=== PATIENT | female | born 1980 | race Caucasian/White ===

== ENCOUNTER 2018-02-22 14:50 | Inpatient (IN) | payer OTHER ==
[~2018-02-22] VITALS: Ht 162.6 cm; Wt 71.2 kg
--- NOTE | 2018-02-22 16:02 | ULTRASOUND REPORT ---
EXAMINATION: US TRIPLEX OF LOWER EXTREMITIES, BILATERAL CLINICAL INFORMATION: Bilateral lower extremity edema. COMPARISON: None TECHNIQUE: Color-flow triplex imaging with spectral analysis and compression Doppler were performed on the lower extremities. FINDINGS: Respiratory variation, normal compression and augmented flow are noted throughout the lower extremities. The visualized common femoral vein, superficial femoral vein, profunda femoral vein, popliteal vein and midcalf peroneal and posterior tibial venous segments show no evidence of deep venous thrombosis. There is no Moreno's cyst. IMPRESSION: No evidence of deep venous thrombosis involving the bilateral lower extremities.
[2018-02-22 16:39] LABS: ABSOLUTE BASOPHIL COUNT 0.1 /CUMM (0.0-0.2); ABSOLUTE EOSINOPHIL COUNT 0.4 /CUMM (0.0-0.7); ABSOLUTE GRANULOCYTE CT 5.8 /CUMM (1.4-6.5); ABSOLUTE LYMPH COUNT 2.4 /CUMM (1.2-3.4); ABSOLUTE MONOCYTE COUNT 0.7 /CUMM (0.10-0.60); BASOPHIL % 1.1 % (0.0-2.0); EOSINOPHIL % 4.7 % (0-5); GRANULOCYTE % 61.6 % (42.2-75.2); HEMATOCRIT 29.1 % (37-47); MEAN CORPUSCULAR HGB 31.2 PG (27.0-31.0); MEAN CORPUSCULAR HGB CONC 33.5 G/DL (33.0-37.0); MEAN CORPUSCULAR VOLUME 92.9 FL (81.0-99.0); MEAN PLATELET VOLUME 7.9 FL (7.4-10.4); PLATELET COUNT 380 /CUMM (130-400); RBC DISTRIBUTION WIDTH 14.6 % (11.5-14.5); RED BLOOD CELL CT 3.13 /CUMM (4.20-5.40); WHITE BLOOD CELL COUNT 9.5 /CUMM (4.8-10.8)
--- NOTE | 2018-02-22 17:38 | RADIOLOGY REPORT ---
EXAMINATION: CHEST 2 VIEWS CLINICAL INFORMATION: Chest tightness. COMPARISON: None. TECHNIQUE: PA and lateral views of the chest were obtained. FINDINGS: The cardiac silhouette is not enlarged. The mediastinal and hilar contours are unremarkable. There are neither pleural effusions nor pneumothoraces. There are no consolidations. The osseous structures are unremarkable. IMPRESSION: No evidence for acute disease.
--- NOTE | 2018-02-22 17:43 | ED GENERAL ADULT ---
History of Present Illness General Chief Complaint: General Adult Stated Complaint: TINGLING IN HANDS/FEET VAGINAL X 1 WEEK AGO Source: patient Exam Limitations: no limitations Vital Signs & Intake/Output Vital Signs & Intake/Output Vital Signs Date Time Temp Pulse Resp B/P B/P Pulse O2 O2 Flow FiO2 Mean Ox Delivery Rate 02/22 2042 98.4 84 18 164/88 100 Room Air 02/22 1838 76 18 170/92 98 Room Air 02/22 1757 74 18 172/99 99 Room Air 02/22 1730 Room Air 02/22 1510 98.9 89 16 156/91 98 Room Air Allergies Coded Allergies: No Known Allergies (02/22/18) Reconcile Medications Cholecalciferol (Vitamin D3) (Vitamin D) 5,000 UNIT TABLET 1 TAB PO DAILY SUPPLEMENT (Reported) Levothyroxine Sodium 112 MCG TABLET 1 TAB PO DAILY THYROID (Reported) Vit No.130/Iron/FA ( Tablet) 27 MG IRON-800 MCG TABLET 1 TAB PO DAILY SUPPLEMENT (Reported) Triage Note: PT TO ED WITH C/O RESIDUAL BILATERAL UPPER AND LOWER MILD SWELLING S/P VAGINAL DELIVERY ONE WEEK AGO. ALSO REPORTS SOME NUMBNESS AND TINGLING TO BILATERAL HANDS. REPORTS INTERMITTENT CHEST TIGHTNESS. Triage Nurses Notes Reviewed? yes Onset: Gradual Duration: hour(s): Timing: recent history : No Patient currently breastfeeds: Yes HPI: 37 year old female presents to the Emergency Department for tingling in bilateral hands and swollen bilateral lower extremities. She also complains of a headache. She is 1 week post .The infant was 4 weeks early. She says she has bilateral hand paresthesias, swelling in her hands and feet, headache. She delivered at [facility] by the erecting crane operator. She is a 1 para 1. Past History Travel History Traveled to [place] past 21 day No Medical History Any Pertinent Medical History? 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 No Review of Systems Review of Systems Constitutional: Reports: see HPI. Denies: fever. EENTM: Reports: no symptoms. Denies: blurred vision, double vision, visual changes. Respiratory: Reports: no symptoms. Denies: short of breath. Cardiovascular: Reports: see HPI, edema (bilateral LE). Denies: chest pain. GI: Reports: no symptoms. Genitourinary: Reports: no symptoms. Musculoskeletal: Reports: no symptoms. Skin: Reports: no symptoms. Neurological/Psychological: Reports: see HPI, tingling (bilateral hands). Hematologic/Endocrine: Reports: no symptoms. Immunologic/Allergic: Reports: no symptoms. All Other Systems: Reviewed and Negative Physical Exam Physical Exam General Appearance: well developed/nourished, alert, awake, anxious, mild distress Head: atraumatic, normal appearance Eyes: Bilateral: normal appearance, PERRL, EOMI. Ears, Nose, Throat: normal ENT inspection Neck: normal inspection Respiratory: lungs clear Cardiovascular: regular rate/rhythm Peripheral Pulses: 4+ radial (R), 4+ radial (L) Gastrointestinal: soft Back: normal inspection Extremities: bilateral LE edema Neurologic/Psych: no motor/sensory deficits, awake, alert, oriented x 3 Skin: intact, normal color, warm/dry Core Measures ACS in differential dx? No CVA/TIA Diagnosis: No Sepsis Present: No Sepsis Focused Exam Completed? No Progress Differential Diagnoses I considered the following diagnoses in my evaluation of the patient: Plan of Care: Orders Procedure Date/time Status Heart Healthy Diet 02/23 B Active CBC WITHOUT DIFFERENTIAL 02/23 0600 Active Regular Diet 02/22 D Complete MAGNESIUM 02/22 2300 Active Patient Data 02/22 2009 Active CULTURE,URINE 02/22 1949 Active TRNSFRASE ASPART AMINO 02/22 1949 Complete TRNSFRAS ALANINE AMINO 02/22 1949 Complete ED Holding Orders 02/22 1824 Active Admit to inpatient 02/22 1824 Active Vital Signs 02/22 1824 Active Code Status 02/22 1824 Active Intake & Output 02/22 1757 Active URINALYSIS 02/22 1512 Complete COMPREHENSIVE METABOLIC PANEL 02/22 1512 Complete CBC WITHOUT DIFFERENTIAL 02/22 1512 Complete EKG 02/22 1512 Active Admit to inpatient 02/22 UNK Active VTE Mechanical Prophylaxis 02/22 UNK Active Vital Signs 02/22 UNK Active Rubio, Insertion/Removal/Asses 02/22 UNK Active Activity/Ambulation 02/22 UNK Active Current Medications Sig/Davonte Start time Last Medication Dose Stop Time Status Admin Levothyroxine Sodium 0.112 MG DAILY AC 02/23 0700 UNVr (Synthroid) Labetalol HCl 200 MG BID 02/22 2100 UNVr (Trandate-Normodyne 200MG Tab) Ondansetron HCl 4 MG Q6P PRN 02/22 2015 UNVr (Zofran) Dextrose/Lactated 1,000 ML Q13H 02/22 1945 UNVr Ringer's (D5W in Lactated Ringers) Magnesium Sulfate 6 GM ONE ONE 02/22 1945 CAN (Mag Sulfate Bolus 02/22 2059 40MG/Ml) Sterile Water 100 ML (WATER) Magnesium Sulfate 40 GM Q20H 02/22 1945 UNVr (Mag Sulfate Infusion 40MG/ML) Sterile Water 1,000 ML (WATER) Laboratory Tests 02/22/182024: AST 52 H, ALT 105 H 02/22/18 1625: Urine Color STRAW, Urine Clarity CLEAR, Urine pH 6.5, Ur Specific [place] 1.010, Urine Protein NEG, Urine Ketones NEG, Urine Nitrite NEG, Urine Bilirubin NEG, Urine Urobilinogen 0.2, Ur Leukocyte Esterase LARGE H, Ur Microscopic SEDIMENT EXAMINED, Urine RBC 25-50 H, Urine WBC 5-10 H, Ur Epithelial Cells FEW, Urine Bacteria FEW H, Urine Hemoglobin LARGE H, Urine Glucose NEG 02/22/18 1610: Anion Gap 5, Estimated GFR > 60, BUN/Creatinine Ratio 18.3, Glucose 96, Calcium 9.5, Total Bilirubin 0.3, AST 50 H, ALT 99 H, Alkaline Phosphatase 78, Total Protein 6.3, Albumin 3.4 L, Globulin 2.9, Albumin/Globulin Ratio 1.2, CBC w Diff NO MAN DIFF REQ, RBC 3.13 L, MCV 92.9, MCH 31.2 H, MCHC 33.5, RDW 14.6 H , MPV 7.9, Gran % 61.6, Lymphocytes % 25.1, Monocytes % 7.5, Eosinophils % 4.7, Basophils % 1.1, Absolute Granulocytes 5.8, Absolute Lymphocytes 2.4, Absolute Monocytes 0.7 H, Absolute Eosinophils 0.4, Absolute Basophils 0.1 Microbiology 02/22 1949 URINE ROUT: Urine Culture - ORD Initial ED EKG: NSR Comments: X-Ray PATIENT: IRVIN WILBURN PRESENT AGE: 37 PATIENT ACCOUNT NO: [id number] : 81 LOCATION: [facility] ORDERING PHYSICIAN: Yrn ALVARADO SERVICE DATE: 02/22/18 EXAM TYPE: RAD - XRY-CHEST XRAY, TWO VIEWS EXAMINATION: CHEST 2 VIEWS CLINICAL INFORMATION: Chest tightness. COMPARISON: None. TECHNIQUE: PA and lateral views of the chest were obtained. FINDINGS: The cardiac silhouette is not enlarged. The mediastinal and hilar contours are unremarkable. There are neither pleural effusions nor pneumothoraces. There are no consolidations. The osseous structures are unremarkable. IMPRESSION: No evidence for acute disease. DICTATED BY: Nick Tobin MD DATE/TIME DICTATED:02/22/181731 BIOANALYST:AYO DATE/TIME TRANSCRIBED:02/22/181731 CONFIDENTIAL, DO NOT COPY WITHOUT APPROPRIATE AUTHORIZATION. <Electronically signed in Other Vendor System> SIGNED BY: Nick Tobin MD 02/22/181737 PATIENT: IRVIN WILBURN PRESENT AGE: 37 PATIENT ACCOUNT NO: [id number] : 81 LOCATION: [facility] ORDERING PHYSICIAN: Yrn ALVARADO SERVICE DATE: 02/22/18 EXAM TYPE: US - US-EXT BILAT VENOUS DOPPLER EXAMINATION: US TRIPLEX OF LOWER EXTREMITIES, BILATERAL CLINICAL INFORMATION: Bilateral lower extremity edema. COMPARISON: None TECHNIQUE: Color-flow triplex imaging with spectral analysis and compression Doppler were performed on the lower extremities. FINDINGS: Respiratory variation, normal compression and augmented flow are noted throughout the lower extremities. The visualized common femoral vein, superficial femoral vein, profunda femoral vein, popliteal vein and midcalf peroneal and posterior tibial venous segments show no evidence of deep venous thrombosis. There is no Moreno's cyst. IMPRESSION: No evidence of deep venous thrombosis involving the bilateral lower extremities. DICTATED BY: Nick Tobin MD DATE/TIME DICTATED:02/22/181557 BIOANALYST:AYO DATE/TIME TRANSCRIBED:02/22/181557 CONFIDENTIAL, DO NOT COPY WITHOUT APPROPRIATE AUTHORIZATION. <Electronically signed in Other Vendor System> SIGNED BY: Nick Tobin MD 02/22/18 160 Departure Departure Disposition: STILL A PATIENT Condition: Stable Clinical Impression Primary Impression: Pre-eclampsia, mild, Referrals: Patient Has No Primary Care Dr (PCP/Family) Departure Forms: Customer Survey General Discharge Information Admission Note Spoke With: Carlos Manuel Hawkins MD Documentation of Exam: Documentation of any treatments & extenuating circumstances including Concerns Regarding Discharge (functional status, medication knowledge or non-compliance, living conditions, etc.) that warrant an admission rather than observation: [The patient needs admission for IV magnesium, neurological evaluations every 6 hours , reflex checks] The patient was in no acute distress. She did have significant swelling to her hands and feet. Blood pressure was moderately elevated. I discussed the case with the on-call DE ALCHOLIZER physician Dr. Hawkins, he will admit the patient for IV magnesium therapy and further monitoring. Critical Care Note Critical Care Note Critical Care Time: non-applicable ED Attending Observation Initial Observation Note: I have seen and personally examined IRVIN WILBURN on 02/22/18 at 1751. I agree with the current emergency department documentation. The disposition (admission or discharge) is uncertain at this time, she needs a period of observation for the following reason(s): The ED Nurse caring for this patient has been personally informed as to what the patient is being observed for.
[2018-02-22] MEDS ORDERED: LEVOTHYROXINE112 MCG PO (18:57)
[2018-02-22] MEDS ORDERED: VITAMIN D5000 UNIT PO (18:58)
[2018-02-22] MEDS ORDERED: PRENATAL TABLE1 EAC2 PO (18:58)
--- NOTE | 2018-02-22 19:59 | History & Physical Pre-Op ---
General Information and HPI History of Present Illness: 37yo s/p of 36week fetus one week ago presents to ED c/o chest fullness and paresthesias and elevated BPs 170s/90s. Labs reveal no proteinuria, normal platelets and elevated LFTs. Records NA-history via patient. Routine care and vaginal delivery with normal course. Patient told risk officer of her symptoms today and was referred to her OB who told her to go to ED. At this time she has no c/o. Allergies/Medications Allergies: Coded Allergies: No Known Allergies (02/22/18) Home Med list Cholecalciferol (Vitamin D3) (Vitamin D) 5,000 UNIT TABLET 1 TAB PO DAILY SUPPLEMENT (Reported) Levothyroxine Sodium 112 MCG TABLET 1 TAB PO DAILY THYROID (Reported) Vit No.130/Iron/FA ( Tablet) 27 MG IRON-800 MCG TABLET 1 TAB PO DAILY SUPPLEMENT (Reported) Past History Medical History Neurological: NONE EENT: NONE Cardiovascular: NONE Respiratory: NONE Gastrointestinal: NONE Hepatic: NONE Renal: NONE Musculoskeletal: NONE Psychiatric: NONE Endocrine: HYPOTHYROIDISM Blood Disorders: NONE Cancer(s): NONE 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 EENTM: Denies: visual changes. Cardiovascular: Denies: peripheral edema. Respiratory: Reports: no symptoms. GI: Reports: no symptoms. Genitourinary: Reports: see HPI. Musculoskeletal: Reports: no symptoms. Skin: Reports: no symptoms. Neurological/Psychological: Reports: paresthesia. Hematologic/Endocrine: Reports: no symptoms. Immunologic/Allergic: Reports: no symptoms. All Other Systems: Reviewed and Negative Exam & Diagnostic Data Last 24 Hrs of Vital Signs/I&O Vital Signs Date Time Temp Pulse Resp B/P B/P Pulse O2 O2 Flow FiO2 Mean Ox Delivery Rate 02/22 1838 76 18 170/92 98 Room Air 02/22 1757 74 18 172/99 99 Room Air 02/22 1730 Room Air 02/22 1510 98.9 89 16 156/91 98 Room Air Intake & Output 02/22 1600 02/22 0800 02/22 0000 Intake Total Output Total Balance Patient 150 lb Weight Weight Reported by Patient Measurement Method Physical Exam: Pt sitting comfortably in NAD HEENT: NCAT ABD: soft NT EXT: no c/c/e Neuro: nonfocal Assessment/Plan Assessment/Plan: PIH plan: admit for Magnesium sulfate IV x 12 hours 2gm/hr after 6gm bolus Labetolo 200mg bid po Rubio to monitor urine output If stable will possibly discharge home tomorrow Repeat labs in am As Ranked By This Provider Problem List: 1. Pre-eclampsia, mild,
[2018-02-23 06:45] LABS: ABSOLUTE BASOPHIL COUNT 0.1 /CUMM (0.0-0.2); ABSOLUTE EOSINOPHIL COUNT 0.4 /CUMM (0.0-0.7); ABSOLUTE GRANULOCYTE CT 5.8 /CUMM (1.4-6.5); ABSOLUTE LYMPH COUNT 2.3 /CUMM (1.2-3.4); ABSOLUTE MONOCYTE COUNT 0.5 /CUMM (0.10-0.60); BASOPHIL % 0.7 % (0.0-2.0); EOSINOPHIL % 4.5 % (0-5); GRANULOCYTE % 63.9 % (42.2-75.2); MEAN CORPUSCULAR HGB 31.6 PG (27.0-31.0); MEAN CORPUSCULAR HGB CONC 34.5 G/DL (33.0-37.0); MEAN CORPUSCULAR VOLUME 91.7 FL (81.0-99.0); MEAN PLATELET VOLUME 7.8 FL (7.4-10.4); PLATELET COUNT 401 /CUMM (130-400); RBC DISTRIBUTION WIDTH 14.5 % (11.5-14.5); RED BLOOD CELL CT 3.28 /CUMM (4.20-5.40); WHITE BLOOD CELL COUNT 9.1 /CUMM (4.8-10.8)
[2018-02-23 08:00] VITALS: BP 144/60
--- NOTE | 2018-02-23 10:08 | Cons- CRCU ---
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 Labs reveal no proteinuria, normal platelets and elevated LFTs. Routine care and vaginal delivery with normal course. Patient told blocker and polisher of her symptoms today and was referred to her OB who told her to go to ED. She was in the emergency room overnight now transferred to the ICU. Patient has been now treated for preeclampsia and eclampsia syndrome with magnesium and now on p.o. labetalol. This morning she was complaining of blurry vision but much improved She has had significant diuresis since coming here Allergies/Medications Allergies: Coded Allergies: No Known Allergies (02/22/18) Home Med List: Cholecalciferol (Vitamin D3) (Vitamin D) 5,000 UNIT TABLET 1 TAB PO DAILY SUPPLEMENT (Reported) Levothyroxine Sodium 112 MCG TABLET 1 TAB PO DAILY THYROID (Reported) Vit No.130/Iron/FA ( Tablet) 27 MG IRON-800 MCG TABLET 1 TAB PO DAILY SUPPLEMENT (Reported) Review of Systems Review of Systems Constitutional: Reports: see HPI. 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: Surgical History Surgical History: non-contributory Exam & Diagnostic Data Last 24 Hrs of Vital Signs/I&O Vital Signs Date Time Temp Pulse Resp B/P B/P Pulse O2 O2 Flow FiO2 Mean Ox Delivery Rate 02/23 0930 90 146/80 02/23 0725 97.4 92 18 142/86 98 Room Air 02/23 0625 97.5 100 18 128/78 98 Room Air 02/23 0525 97.0 97 18 122/88 98 Room Air 02/23 0425 88 18 138/88 98 Room Air 02/23 0320 98.4 91 16 146/90 98 Room Air 02/23 0225 92 138/83 08/ 0110 90 127/76 / 0107 98.5 90 16 127/76 100 Room Air 02/22 2338 82 18 138/72 100 Room Air 02/22 2238 83 18 136/72 99 Room Air 02/22 2154 98.5 02/22 2149 102 18 128/72 99 Room Air 02/22 2126 80 18 130/70 98 Room Air 02/22 2042 98.4 84 18 164/88 100 Room Air 02/22 1838 76 18 170/92 98 Room Air 02/22 1757 74 18 172/99 99 Room Air 02/22 1730 Room Air 02/22 1510 98.9 89 16 156/91 98 Room Air Intake & Output 02/23 1600 02/23 0800 08 0000 Intake Total Output Total 4500 1700 Balance -4500 -1700 Output, Urine 4500 1700 Last 48 Hrs of Labs/Redd: Laboratory Tests 02/23/18 0640: Magnesium 5.2 H, AST 51 H, ALT 85 H, CBC w Diff NO MAN DIFF REQ, RBC 3.28 L, MCV 91.7, MCH 31.6 H, MCHC 34.5, RDW 14.5, MPV 7.8, Gran % 63.9, Lymphocytes % 25.5, Monocytes % 5.4, Eosinophils % 4.5, Basophils % 0.7, Absolute Granulocytes 5.8, Absolute Lymphocytes 2.3, Absolute Monocytes 0.5, Absolute Eosinophils 0.4, Absolute Basophils 0.1 02/22/182334: Magnesium 4.9 H 02/22/182024: AST 52 H, ALT 105 H 02/22/18 1625: Urine Color STRAW, Urine Clarity CLEAR, Urine pH 6.5, Ur Specific [place] 1.010, Urine Protein NEG, Urine Ketones NEG, Urine Nitrite NEG, Urine Bilirubin NEG, Urine Urobilinogen 0.2, Ur Leukocyte Esterase LARGE H, Ur Microscopic SEDIMENT EXAMINED, Urine RBC 25-50 H, Urine WBC 5-10 H, Ur Epithelial Cells FEW, Urine Bacteria FEW H, Urine Hemoglobin LARGE H, Urine Glucose NEG 02/22/18 1610: Anion Gap 5, Estimated GFR > 60, BUN/Creatinine Ratio 18.3, Glucose 96, Calcium 9.5, Total Bilirubin 0.3, AST 50 H, ALT 99 H, Alkaline Phosphatase 78, Total Protein 6.3, Albumin 3.4 L, Globulin 2.9, Albumin/Globulin Ratio 1.2, CBC w Diff NO MAN DIFF REQ, RBC 3.13 L, MCV 92.9, MCH 31.2 H, MCHC 33.5, RDW 14.6 H , MPV 7.9, Gran % 61.6, Lymphocytes % 25.1, Monocytes % 7.5, Eosinophils % 4.7, Basophils % 1.1, Absolute Granulocytes 5.8, Absolute Lymphocytes 2.4, Absolute Monocytes 0.7 H, Absolute Eosinophils 0.4, Absolute Basophils 0.1 Assessment/Plan CRCU Impression/Plan: Sitting comfortably Pupils react extraocular movements intact Neck supple no JVD Chest clear Heart S1-S2 is heard Abdominal exam soft No edema Nonfocal neurological exam SIGNIFICANT DATA Chest x-ray unremarkable Lower extremity Doppler no DVT Blood work reviewed her magnesium level is 5.2 this morning her liver enzymes were elevated AST ALT slightly elevated normal bilirubin and alkaline phosphatase White count was 9.1 hemoglobin 10 point for immediate no significant left shift Previous antiphospholipid antibody panel was negative QuantiFERON gold negative IMPRESSION 37yo s/p of 36week fetus one week ago presents to ED c/o chest fullness and paresthesias and elevated BPs 170s/90s. Labs reveal no proteinuria, normal platelets and elevated LFTs. Normal vaginal delivery Issues include -induced hypertension Mild altered LFTs normal platelets. 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 twice daily can increase dose Check TSH and free T4 Patient seems to be undergoing spontaneous diuresis which is a good sign Probable discharge in the next day Consult Acknowledgment - Thank you for your consult request.
[2018-02-23] MEDS ORDERED: IBUPROFEN800 M1 PO ×2 (12:30→12:37)
[2018-02-23] MEDS ORDERED: LABETALOL HCL200 M1 PO ×3 (12:30→12:37)
--- NOTE | 2018-02-23 15:58 | PN- Post Delivery/GYN ---
Subjective Subjective: c/o EDWARDS Review of Systems: BPS trending down Objective Last 24 Hrs of Vital Signs/I&O Vital Signs Date Time Temp Pulse Resp B/P B/P Pulse O2 O2 Flow FiO2 Mean Ox Delivery Rate 02/23 0930 90 146/80 08/16 0800 98.2 100 18 144/60 99 Room Air 08/16 0725 97.4 92 18 142/86 98 Room Air /16 0625 97.5 100 18 128/78 98 Room Air /16 0525 97.0 97 18 122/88 98 Room Air 08/16 0425 88 18 138/88 98 Room Air 08/16 0320 98.4 91 16 146/90 98 Room Air /16 0225 92 138/83 08/16 0110 90 127/76 08/16 0107 98.5 90 16 127/76 100 Room Air 08/15 2338 82 18 138/72 100 Room Air 08/15 2238 83 18 136/72 99 Room Air 08/15 2154 98.5 08/15 2149 102 18 128/72 99 Room Air 08/15 2126 80 18 130/70 98 Room Air 08/15 2042 98.4 84 18 164/88 100 Room Air 08/15 1838 76 18 170/92 98 Room Air /15 1757 74 18 172/99 99 Room Air 08/15 1730 Room Air Intake & Output 02/23 1600 /16 0800 16 0000 Intake Total 1750 Output Total 2600 4500 1700 Balance -850 -4500 -1700 Intake, IV 750 Intake, Oral 1000 Number 1 Bowel Movements Output, Urine 2600 4500 1700 Patient 157 lb 157 lb Weight Weight Bed scale Measurement Method Physical Exam: Abd soft perineunm intact ext NT Assessment/Plan Assessment/Plan PP PIH on MgSO4, Labetolol improved D/c MgSO4 Discharge home on Labetolol 200mg bid F/U OB within 1 week Problem List: 1. Pre-eclampsia, mild,
[2018-02-23 18:35] VITALS: BP 146/78
[2018-02-23 20:12] VITALS: BP 146/78
== END 2018-02-23 20:39 | DRG 776 ==
LOC: ERH 14:50 → CRI 18:24 → ERHI 18:24 → ENRESERV 02-23 07:50 → ENTRNSPT 02-23 08:10 → EDTRNSPTSTS 02-23 08:13 → EDTRNSPT 02-23 08:13 → CRI 02-23 08:25 → EDTRNSPT 02-23 08:25 → CMPTRNSPT 02-23 08:42 → CRI 02-23 20:39
PROVIDERS: Obstetrics & Gynecology; Physician Assistant Medical
DX: O14.05 Mild to moderate pre-eclampsia, complicating the puerperium (principal)
CPT/HCPCS: ERO; 71046; 81001; 87086; 93005; 93010; 93970; 96374; J3475